=== PATIENT | male | born 1990 | race Caucasian/White ===

== ENCOUNTER 2021-11-18 11:55 | Emergency (ER) | payer OTHER ==
[2021-11-18 12:27] VITALS: BP 113/72; PULSE 85; TEMP 98.2; BMI 28.0
[2021-11-18 14:44] LABS: PH,URINE 6.5 (5.0-8.0); URINE APPEARANCE CLEAR; URINE BILIRUBIN NEGATIVE (NEGATIVE); URINE COLOR YELLOW; URINE GLUCOSE (UA) NEGATIVE (NEGATIVE); URINE KETONE NEGATIVE (NEGATIVE); URINE LEUK ESTERASE NEGATIVE (NEGATIVE); URINE NITRITE NEGATIVE (NEGATIVE); URINE PROTEIN NEGATIVE (NEGATIVE); URINE UROBILINOGEN 0.2 mg/dL (0.2-1.0)
== END 2021-11-18 14:50 | disposition home or self-care (01) ==
LOC: JERFT 11:55
DX: A49.3 Mycoplasma infection, unspecified site (principal)
CPT/HCPCS: 36415; 81003; 87086; 87491; 87591; 99283-25